=== PATIENT | male | born 1980 | race Caucasian/White ===

== ENCOUNTER 2019-05-11 10:32 | Emergency (ER) | payer SELFPAY ==
[2019-05-11] MEDS ORDERED: KETOROLAC TROMETHAMINE 60 MG/2 ML SDV IM ONE (10:38)
--- NOTE | 2019-05-11 10:41 | ER Document Report ---
ED Medical Screen (RME) - General Chief Complaint: Numbness of Arm Stated Complaint: ARM NUMBNESS Time Seen by Provider: 05/11/19 10:35 Mode of Arrival: Ambulatory Information source: Patient Notes: Otherwise healthy 39-year-old male patient presenting with chief complaint of left arm pain, numbness and heaviness. Patient reports symptoms ongoing for 2 months. He denies seeking treatment prior to this time. He reports a history of a shoulder injury to the other shoulder, states this feels similar. Patient has slight weakness in his left arm on assessment, strong radial pulse. Altered sensation reported. I have greeted and performed a rapid initial assessment of this patient. A comprehensive ED assessment and evaluation of the patient, analysis of test results and completion of the medical decision making process will be conducted by additional ED providers. I have specifically instructed the patient or family members with the patient to immediately return to any nursing staff should anything change in the patient's condition or with their chief complaint. - Related Data Allergies/Adverse Reactions: No Known Allergies Allergy (Unverified 05/11/19 10:36)
[2019-05-11 11:01] VITALS: BP 142/98
--- NOTE | 2019-05-11 11:01 | RADIOLOGY REPORT (SQ) ---
EXAM DESCRIPTION: SHOULDER LEFT 2 OR MORE VIEWS COMPLETED DATE/TIME: 05/11/2019 10:52 am REASON FOR STUDY: left shoulder pain, L arm numness/tingling COMPARISON: None. NUMBER OF VIEWS: Three views. TECHNIQUE: Internal rotation, external rotation, and Y view images acquired of the left shoulder. LIMITATIONS: None. FINDINGS: MINERALIZATION: Normal. BONES: No acute fracture. No worrisome bone lesions. JOINTS: No dislocation. VISUALIZED LUNGS AND RIBS: No pneumothorax. No rib fracture. SOFT TISSUES: No radiopaque foreign body. OTHER: No other significant finding. IMPRESSION: NEGATIVE STUDY OF THE LEFT SHOULDER. NO RADIOGRAPHIC EVIDENCE OF ACUTE INJURY. TECHNICAL DOCUMENTATION: JOB ID: [id number] 2010 [employer]- All Rights Reserved Reading location - IP/workstation name: [email or web address]
--- NOTE | 2019-05-11 12:35 | ER Document Report ---
Entered by MARI MCKEON SCRIBE 05/11/19 1148 Acting as scribe for:RYAN SELBY MD ED General - General Chief Complaint: Shoulder Pain Stated Complaint: ARM NUMBNESS Time Seen by Provider: 05/11/19 10:35 Mode of Arrival: Ambulatory Information source: Patient Notes: 39-year-old male presents to the emergency department complaining of left shoulder pain that began two months ago. Patient describes feeling weak and describes that he feels like his "shoulder is ready to fall off". Patient reports that when he coughs, he has a pain in the back of his head. Patient reports no injury to his left shoulder. Patient complains of cough with green/yellow sputum. TRAVEL OUTSIDE OF THE [place] IN LAST 30 DAYS: No - Related Data Allergies/Adverse Reactions: No Known Allergies Allergy (Unverified 05/11/19 10:36) Home Medications: xarelto Past Medical History - General Information source: Patient - Social History Smoking Status: Never Smoker Cigarette use (# per day): No Chew tobacco use (# tins/day): No Frequency of alcohol use: daily 2-3 drinks Drug Abuse: None Occupation: ultra sound technician Family History: Reviewed & Not Pertinent Patient has suicidal ideation: No Patient has homicidal ideation: No - Past Medical History Cardiac Medical History: Reports: Hx Pulmonary Embolism Surgical Hx: Negative Review of Systems - Review of Systems Constitutional: No symptoms reported EENT: No symptoms reported Cardiovascular: No symptoms reported Respiratory: See HPI, Cough, Sputum Gastrointestinal: No symptoms reported Genitourinary: No symptoms reported Male Genitourinary: No symptoms reported Musculoskeletal: See HPI, Other - Left shoulder pain Skin: No symptoms reported Hematologic/Lymphatic: No symptoms reported Neurological/Psychological: No symptoms reported -: Yes All other systems reviewed and negative Physical Exam - Vital signs Vitals: Pulse Resp BP Pulse Ox 92 18 142/98 H 99 05/11/19 10:33 05/11/19 10:33 05/11/19 10:33 05/11/19 10:33 - Notes Notes: Physical Exam: General: Alert, appears well. HEENT: Normocephalic. Atraumatic. PERRL. Extraocular movements intact. Oropharynx clear. Neck: Supple. Non-tender. Respiratory: No respiratory distress. Clear and equal breath sounds bilaterally. Cardiovascular: Regular rate and rhythm. Abdominal: Normal Inspection. Non-tender. No distension. Normal Bowel Sounds. Back: No gross abnormalities. Extremities: Moves all four extremities. Upper extremities: Normal inspection. Normal ROM. Lower extremities: Normal inspection. No edema. Normal ROM. Neurological: Normal cognition. AAOx4. Normal speech. Psychological: Normal affect. Normal Mood. Skin: Warm. Dry. Normal color. Course - Re-evaluation Re-evalutation: 05/11/19 12:28 Patient sitting in chair resting comfortably not showing any signs of respiratory distress or significant pain. 05/11/19 12:29 Inasmuch as patient is initial chief complaint also includes that he has been coughing up some yellow dark and mucus with some left neck pain associated with coughing. Therefore patient will be placed on antibiotics and Tylenol as needed for pain. Also Mucinex DM cough tablet. - Vital Signs Vital signs: Temp Pulse Resp BP Pulse Ox 92 18 142/98 H 99 05/11/19 10:33 05/11/19 10:33 05/11/19 10:33 05/11/19 10:33 05/11/19 12:28 Vital signs showed oximetry of 99%. Blood pressure mildly elevated at 142/98 pulse 92 respiratory 18 unlabored. - Diagnostic Test Radiology reviewed: Image reviewed, Reports reviewed Radiology results interpreted by me: 05/11/19 12:28 Chest x-ray read by Dr. Selby radiology radiologist examination interpretation pending however 2 view chest does not show any acute process no pneumothorax no infiltrate. Shoulder x-ray read by radiologist no acute process. Discharge - Discharge Clinical Impression: Acute bronchitis, Left shoulder pain Condition: Stable Disposition: HOME, SELF-CARE Additional Instructions: Bronchitis You have acute bronchitis. This disease is an infection or inflammation of the air passageways in your lungs. Symptoms usually include cough, low grade fever, shortness of breath, and wheezing. The cough usually persists for a couple of weeks. Most cases of bronchitis get better without antibiotics. We prescribe antibiotics when we believe bacteria are damaging your airways, or if there's high risk the bronchitis will worsen into pneumonia. Increase your fluid intake. A cool mist humidifier may make your lungs more comfortable. An expectorant (cough medicine that loosens phlegm) can help. If you smoke, STOP!!! Recovery from bronchitis can be somewhat slow, but you should see improvement within a day or two. Repeated episodes of bronchitis may result in lung damage -- for example, chronic bronchitis, recurrent pneumonias, or emphysema. Call the doctor if you develop increasing fever, shortness of breath, chest pain, bloody sputum, or otherwise worsen. If you have not improved at all after several days, contact the physician. Prescriptions: Amoxicillin/Potassium Clav [Augmentin 875-125 Tablet] 1 tab PO BID #20 tab Guaifenesin/Dextromethorphan [Mucinex Dm ER 600-30 mg Tablet] 1 each PO BID 10 Days #20 tab.er.12h I personally performed the services described in the documentation, reviewed and edited the documentation which was dictated to the scribe in my presence, and it accurately records my words and actions.
--- NOTE | 2019-05-11 12:51 | RADIOLOGY REPORT (SQ) ---
EXAM DESCRIPTION: CHEST 2 VIEWS COMPLETED DATE/TIME: 05/11/2019 12:36 pm REASON FOR STUDY: cough COMPARISON: None. EXAM PARAMETERS: NUMBER OF VIEWS: two views TECHNIQUE: Digital Frontal and Lateral radiographic views of the chest acquired. RADIATION DOSE: NA LIMITATIONS: none FINDINGS: LUNGS AND PLEURA: No opacities, masses or pneumothorax. No pleural effusion. MEDIASTINUM AND HILAR STRUCTURES: No masses or contour abnormalities. HEART AND VASCULAR STRUCTURES: Heart normal size. No evidence for failure. BONES: No acute findings. HARDWARE: None in the chest. OTHER: No other significant finding. IMPRESSION: No focal airspace disease or other evidence of acute intrathoracic process. TECHNICAL DOCUMENTATION: JOB ID: [id number] 2010 [email or web address]- All Rights Reserved Reading location - IP/workstation name: [email or web address]
== END 2019-05-11 12:41 | disposition home or self-care (01) ==
LOC: ER 10:32
DX: J20.9 Acute bronchitis, unspecified (principal); M25.512 Pain in left shoulder; Z86.711 Personal history of pulmonary embolism
CPT/HCPCS: 99283; 96372; 71046; 73030; J1885

== ENCOUNTER 2019-06-17 03:59 | Emergency (ER) | payer SELFPAY ==
--- NOTE | 2019-06-17 04:23 | RADIOLOGY REPORT (SQ) ---
EXAM DESCRIPTION: CT HEAD WITHOUT IV CONTRAST COMPLETED DATE/TME: 06/17/2019 00:00 CLINICAL HISTORY: STROKE SX, L SIDE WEAKNESS. COMPARISON: None available TECHNIQUE: Axial CT of the head obtained from the skull apex to the skull base without contrast. FINDINGS: No acute intracranial hemorrhage identified. No mass, mass effect, shift of the midline, abnormal extra-axial fluid collection or CT evidence of acute ischemic change identified. The ventricular system is unremarkable. No acute abnormalities of the supratentorial white matter, basal ganglia, cerebellum, or brainstem. The visualized paranasal sinuses and the mastoids are relatively well aerated. No skull fracture identified. Visualized orbits and globes are unremarkable. IMPRESSION: 1. No acute intracranial abnormality identified. This exam was performed according to our departmental dose-optimization program, which includes automated exposure control, adjustment of the mA and/or kV according to patient size and/or use of iterative reconstruction technique.
--- NOTE | 2019-06-17 04:26 | RADIOLOGY REPORT (SQ) ---
AP Portable chest: 06/17/2019 3:25 AM CDT History: 39-year old patient with concern for stroke. Comparison: Chest radiograph performed 05/11/2019. Findings: The cardiomediastinal silhouette is normal in size. No pneumothorax is seen. No acute airspace opacities are seen. No discrete pleural effusion is apparent. Impression: No acute airspace opacities are seen.
--- NOTE | 2019-06-17 04:29 | ER Document Report ---
ED General - General Stated Complaint: STROKE SYMPTOMS Time Seen by Provider: 06/17/19 04:07 Mode of Arrival: Medic Information source: Patient, Emergency Med Personnel Notes: 39-year-old man presents to the emergency department history of left-sided weakness which began approximately 3:15 am He was at a friend's house drinking when he began having left arm and left leg weakness, numbness and inability to move the left side. He has a history of chronic pain involving the left arm, headaches, and a prior pulmonary embolus. His PE was approximately 9 months ago, he is taking Xarelto. The patient states that he took a dose of Xarelto tonight. Past medical history is significant for hypertension. His speech is been normal, no facial asymmetry, complains of right shoulder pain and positive headache. TRAVEL OUTSIDE OF THE [place] IN LAST 30 DAYS: No - Related Data Allergies/Adverse Reactions: No Known Allergies Allergy (Unverified 05/11/19 10:36) Past Medical History - General Information source: Patient - Social History Smoking Status: Current Every Day Smoker Family History: Reviewed & Not Pertinent - Past Medical History Cardiac Medical History: Reports: Hx Pulmonary Embolism Review of Systems - Review of Systems Notes: Constitutional: Negative for fever. HENT: Negative for sore throat. Eyes: Negative for visual changes. Cardiovascular: Negative for chest pain. Respiratory: Negative for shortness of breath. Gastrointestinal: Negative for abdominal pain, vomiting or diarrhea. Genitourinary: Negative for dysuria. Musculoskeletal: Negative for back pain. Skin: Negative for rash. Neurological: + headaches, + left sidedweakness and numbness. 10 point ROS negative except as marked above and in HPI. Physical Exam - Vital signs Vitals: Pulse Resp BP Pulse Ox 95 16 167/96 H 96 06/17/19 04:10 06/17/19 04:10 06/17/19 04:10 06/17/19 04:10 - Notes Notes: PHYSICAL EXAMINATION: Physical Exam: General: Well-nourished well-developed in no acute distress HEENT: NC/AT, pupils equal round and reactive to light, MM moist,nares clear, oropharynx clear, airway patent Neck: supple, no adenopathy, no masses. Good range of motion Lungs: clear, no wheezing, no rales no rhonchi CVS: Regular rate and rhythm no murmur gallop or rub Abdomen: Soft, active, nontender, no masses, no hepatosplenomegaly Ext: No edema, clubbing or cyanosis. Neuro: Alert and responsive, + weakness of the left arm and left leg, + numbness left-sided, + flaccid left upper and left lower extremities PSYCH: Normal mood, normal affect. Course - Re-evaluation Re-evalutation: 06/17/19 05:53 Patient presents with acute onset of neurologic/strokelike symptoms left-sided weakness/inability to raise the arm or leg against gravity, sensory loss in both extremities as well. He has no speech or visual changes. There is no facial asymmetry or neglect. There is no gaze preference and the sensorium/mentation, is normal. NIHSS score 9-10. Patient is taking an anticoagulant Xarelto, he is not a candidate for TPA. Use of anticoagulation therapy is an exclusion criteria for TPA. I have contacted the neurology services at [facility], Simran Barnes, practitioner publications production supervisor, has agreed to accept the patient in transfer to [facility], CTA to exclude large vessel occlusion will be performed. Patient is being admitted to Dr. Nelson as the attending physician. At 5:45 AM patient reevaluation revealed slight movement in the left lower extremity and left upper extremity, he continued to have sensory deficit. I explained to the patient that we have no neurology coverage at [facility] and that having a neurologist evaluate his status for possible intervention would be the standard of care. The patient has agreed to that transfer. - Vital Signs Vital signs: Temp Pulse Resp BP Pulse Ox 95 14 118/89 H 94 06/17/19 04:10 06/17/19 05:30 06/17/19 05:30 06/17/19 05:30 - Laboratory Result Diagrams: 06/17/19 04:16 06/17/19 04:16 Laboratory results interpreted by me: 06/17/19 06/17/19 04:16 04:16 RDW 14.2 H Glucose 112 H Creatine Kinase 250 H - Diagnostic Test Radiology reviewed: Image reviewed, Reports reviewed - CT head: No acute in tracranial hemorrhage Chest x-ray: No acute cardiopulmonary findings. - EKG Interpretation by Me EKG shows normal: Sinus rhythm - Normal sinus rhythm rate 85, no acute ST or T wave abnormalities seen. Interpretation, normal electrocardiogram. Critical Care Note - Critical Care Note Total time excluding time spent on procedures (mins): 45 - Critical care time spent obtaining history from patient or surrogate, discussions with consultants, development of treatment plan with patient or surrogate, evaluation of patient's response to treatment, examination of patient, ordering and performing treatments and interventions, ordering and review of laboratory studies, re- evaluation of patient's condition, ordering and review of radiographic studies and review of old charts Discharge - Discharge Clinical Impression: Stroke-like symptoms, Acute left hemiparesis Condition: Good Disposition: [facility]
[2019-06-17 04:42] LABS: ABSOLUTE BASOPHILS # (AUTO) 0.1 10^3/uL (0.0-0.2); ABSOLUTE EOSINOPHILS # (AUTO) 0.1 10^3/uL (0.0-0.6); ABSOLUTE LYMPHOCYTES (AUTO) 1.8 10^3/uL (0.5-4.7); ABSOLUTE MONOCYTES (AUTO) 0.5 10^3/uL (0.1-1.4); ABSOLUTE NEUT (AUTO) 2.6 10^3/uL (1.7-8.2); BASOPHILS % (AUTO) 1.1 % (0-2); EOSINOPHILS % (AUTO) 2.4 % (0-6); HEMATOCRIT 46.1 % (37.9-51.0); HEMOGLOBIN 16.3 g/dL (13.5-17.0); LYMPHOCYTES % (AUTO) 34.9 % (13-45); MEAN CORPUSCULAR HEMOGLOBIN 33.4 pg (27.0-33.4); MEAN CORPUSCULAR HGB CONC 35.2 g/dL (32.0-36.0); MEAN CORPUSCULAR VOLUME 95 fl (80-97); MONOCYTES % (AUTO) 10.6 % (3-13); PLATELET COUNT 191 10^3/uL (150-450); RED BLOOD COUNT 4.86 10^6/uL (4.35-5.55); RED CELL DISTRIBUTION WIDTH 14.2 % (11.5-14.0); TOTAL CELLS COUNTED % (AUTO) 100 %; WHITE BLOOD COUNT 5.1 10^3/uL (4.0-10.5)
[2019-06-17 04:48] LABS: INTERNATIONAL RATION (INR) 0.99; PARTIAL THROMBOPLASTIN TIME 26.3 SEC (23.5-35.8); PROTHROMBIN TIME 13.1 SEC (11.4-15.4)
[2019-06-17 04:52] LABS: ALBUMIN 4.6 g/dL (3.5-5.0); ALCOHOL 168 mg/dL (NONE DETECTED); ALKALINE PHOSPHATASE 56 U/L (38-126); ANION GAP 9 (5-19); ASPARTATE AMINO TRANSFERASE 42 U/L (17-59); BILIRUBIN,TOTAL 0.5 mg/dL (0.2-1.3); BLOOD UREA NITROGEN 10 mg/dL (7-20); CALCIUM 9.2 mg/dL (8.4-10.2); CARBON DIOXIDE 25 mmol/L (22-30); CHLORIDE 104 mmol/L (98-107); CREATINE KINASE 250 U/L (55-170); GLUCOSE 112 mg/dL (75-110); TOTAL PROTEIN 7.4 g/dL (6.3-8.2)
[2019-06-17 05:01] LABS: APPEARANCE,URINE CLEAR; BILIRUBIN,URINE NEGATIVE (NEGATIVE); COLOR,URINE COLORLESS; GLUCOSE, URINE NEGATIVE (NEGATIVE); KETONES,URINE NEGATIVE (NEGATIVE); PROTEIN,URINE NEGATIVE (NEGATIVE); URINE SPECIFIC GRAVITY 1.002; UROBILINOGEN,URINE NEGATIVE mg/dL (<2.0)
[2019-06-17 05:07] LABS: URINE AMPHETAMINES SCREEN NEGATIVE; URINE BARBITURATES SCREEN NEGATIVE; URINE BENZODIAZEPINES SCREEN NEGATIVE; URINE COCAINE SCREEN NEGATIVE; URINE MARIJUANA (THC) SCREEN NEGATIVE; URINE METHADONE SCREEN NEGATIVE; URINE PHENCYCLIDINE SCREEN NEGATIVE
[2019-06-17 05:09] LABS: CREATINE KINASE MB 1.44 ng/mL (<4.55)
[2019-06-17 05:17] LABS: TROPONIN I < 0.012 ng/mL
[2019-06-17 06:20] VITALS: BP 109/75
--- NOTE | 2019-06-17 07:43 | EKG REPORT ---
SEVERITY:- BORDERLINE ECG - SINUS RHYTHM LA ABNORMALITY : Confirmed by: Yoel Lang MD 17-Jun-2019 07:42:22
== END 2019-06-17 06:32 | disposition short-term general hospital (02) ==
LOC: ER 03:59
DX: G81.94 Hemiplegia, unspecified affecting left nondominant side (principal); M62.81 Muscle weakness (generalized); R20.0 Anesthesia of skin; R51 Headache; R29.709 NIHSS score 9; Z79.01 Long term (current) use of anticoagulants; F17.200 Nicotine dependence, unspecified, uncomplicated; Z86.711 Personal history of pulmonary embolism
CPT/HCPCS: 36415; 70450; 71045; 80053; 80307; 81001; 82550; 82553; 84484; 85025; 85610; 85730; 93005; 93010; 99291